=== PATIENT | female | born 2005 | race Caucasian/White ===

== ENCOUNTER 2023-06-25 18:45 | Emergency (ER) | payer OTHER ==
[2023-06-25 19:10] VITALS: BMI 19.5
[2023-06-25] MEDS ORDERED: ACETAMINOPHEN INJECTION 100 ML IVPB ONE (20:43)
[2023-06-25 20:44] LABS: BASO % 0.4 % (0-2.0); EOS % 2.7 % (0-4.5); HEMATOCRIT 41.1 % (32.4-45.2); HEMOGLOBIN 14.1 GM/dL (10.7-15.3); LYMPH % 16.2 % (8-40); MCH 30.8 pg (25.7-33.7); MCHC 34.3 g/dl (32.0-36.0); MEAN CELL VOLUME 89.8 fl (80-96); MEAN PLT VOLUME 9.6 fl (7.5-11.1); MONO % 10.9 % (3.8-10.2); NEUT % 69.8 % (42.8-82.8); PLATELET COUNT 212 10^3/uL (134-434); RBC 4.58 M/mm3 (3.60-5.2); RDW 13.3 % (11.6-15.6)
[2023-06-25] MEDS: SODIUM CHLORIDE 1,000 ML IV STA (20:51)
[2023-06-25] MEDS: ACETAMINOPHEN 1000 MG/100 ML BAG IVPB ONE (20:51)
[2023-06-25 21:13] LABS: CALCIUM 9.8 mg/dL (8.5-10.1)
[2023-06-25 21:14] LABS: ALBUMIN 4.3 g/dl (3.4-5.0); BLOOD UREA NITROGEN 9.4 mg/dL (7-18)
[2023-06-25 21:17] LABS: POTASSIUM 3.8 mmol/L (3.5-5.1)
[2023-06-25 21:19] LABS: TOT PROT 7.7 g/dl (6.4-8.2)
[2023-06-25 21:30] LABS: CREATININE 0.8 mg/dL (0.55-1.3)
[2023-06-25 22:13] LABS: EPI CELLS 32 /uL (0-25.1); HCG,QUALITATIVE URINE Negative; HYALINE CASTS 2 /uL (0-3.1); PH,URINE 5.5 (5.0-8.0); URINE APPEARANCE CLOUDY; URINE BACTERIA >9,000 /uL (0-1359); URINE BILIRUBIN NEGATIVE (NEGATIVE); URINE COLOR YELLOW; URINE GLUCOSE (UA) NEGATIVE (NEGATIVE); URINE KETONE TRACE (NEGATIVE); URINE LEUK ESTERASE NEGATIVE (NEGATIVE); URINE NITRITE NEGATIVE (NEGATIVE); URINE PROTEIN NEGATIVE (NEGATIVE); URINE RBC 7 /uL (0-23.9); URINE WBC 36 /uL (0-25.8)
[2023-06-25] MEDS ORDERED: CEFTRIAXONE 1 GM/50 ML BAG ONE (23:05)
[2023-06-25] MEDS: CEFTRIAXONE 1 GM in DEXTROSE 5%-WATER - 100 ML IVPB ONE (23:09)
[2023-06-25] MEDS ORDERED: ONDANSETRON 4 MG/2 ML VIAL ONE (23:56)
[2023-06-25] MEDS ORDERED: ALBUTEROL SO4 0.083% IH SOL 2.5 MG/3 ML VIAL.NEB. NEB ONE (23:57)
[2023-06-26] MEDS: ONDANSETRON 4 MG/2 ML VIAL IVPUSH ONE (00:03)
[2023-06-26] MEDS: ALBUTEROL SO4 0.083% IH SOL 2.5 MG/3 ML VIAL.NEB. NEB ONE (00:03)
[2023-06-26] MEDS ORDERED: KETOROLAC TROMETHAMINE 15 MG/ML VIAL ONE (00:28)
[2023-06-26] MEDS ORDERED: LIDOCAINE 4% PATCH TP ONE (00:28)
[2023-06-26] MEDS: LIDOCAINE 5% TOPICAL PATCH TP ONE (00:31)
[2023-06-26] MEDS: KETOROLAC TROMETHAMINE 15 MG/ML VIAL IVPUSH ONE (00:31)
[2023-06-26 01:40] VITALS: BP 99/48; PULSE 62; RESP 18; TEMP 97.8
[2023-06-26] MEDS ORDERED: LIDOCAINE PATCH REMOVAL MC SCH (22:00)
== END 2023-06-26 01:40 | disposition home or self-care (01) ==
LOC: JER 18:45
PROC: 3E03329 Introduction of Other Anti-infective into Peripheral Vein, Percutaneous Approach (ICD-10-PCS; principal; 2023-06-25)
PROC: 3E030NZ Introduction of Analgesics, Hypnotics, Sedatives into Peripheral Vein, Open Approach (ICD-10-PCS; 2023-06-25)
PROC: 3E0337Z Introduction of Electrolytic and Water Balance Substance into Peripheral Vein, Percutaneous Approach (ICD-10-PCS; 2023-06-25)
PROC: 3E0303Z Introduction of Anti-inflammatory into Peripheral Vein, Open Approach (ICD-10-PCS; 2023-06-26)
PROC: 3E030GC Introduction of Other Therapeutic Substance into Peripheral Vein, Open Approach (ICD-10-PCS; 2023-06-26)
PROC: 3E0F7GC Introduction of Other Therapeutic Substance into Respiratory Tract, Via Natural or Artificial Opening (ICD-10-PCS; 2023-06-26)
DX: N39.0 Urinary tract infection, site not specified (principal); J40 Bronchitis, not specified as acute or chronic; M54.6 Pain in thoracic spine; R11.0 Nausea; R10.12 Left upper quadrant pain; R50.9 Fever, unspecified; R05.9 Cough, unspecified; R00.0 Tachycardia, unspecified; R07.89 Other chest pain; Z20.822 Contact with and (suspected) exposure to COVID-19
CPT/HCPCS: 0241U-QW; 36415; 71046-TC-FY; 74176-TC; 80053; 81003; 83690; 84703; 85025; 87086; 87186; 87491; 87591; 99285-25; J0131